=== PATIENT | female | born 1990 | race Caucasian/White ===

== ENCOUNTER 2021-04-10 16:46 | Emergency (ER) | payer OTHER ==
[~2021-04-10 16:46] MED LIST: AZITHROMYCIN250 MG PO; MOTRIN600 MG PO
[2021-04-10] MEDS ORDERED: AMOXICILLIN875 MG PO (17:56)
[2021-04-10] MEDS ORDERED: VENTOLIN HFA IN18 GM INH (17:56)
== END 2021-04-10 18:05 | disposition home or self-care (01) ==
LOC: FER 16:46
DX: H92.02 Otalgia, left ear (principal); R06.2 Wheezing; F17.200 Nicotine dependence, unspecified, uncomplicated; Z76.0 Encounter for issue of repeat prescription; Z88.0 Allergy status to penicillin
CPT/HCPCS: 99282

== ENCOUNTER 2021-08-04 02:17 | Day surgery (SDCO) | payer OTHER ==
[~2021-08-04] VITALS: Ht 160 cm; Wt 56.1 kg
[~2021-08-04 02:17] MED LIST changes: +AMOXICILLIN875 MG PO; +VENTOLIN HFA IN18 GM INH
[2021-08-04 03:08] LABS: BASOPHIL 0.6 % (0-2); EOSINOPHIL 1.1 % (0-5); HCT 42.3 % (37.0-47.0); HGB 12.9 g/dl (12.5-16.0); LYMPHOCYTE 25.7 % (15-48); MCH 26.6 pg (25.0-31.0); MCHC 30.5 g/dL (32.0-36.0); MCV 87.2 fL (78.0-100.0); NEUTROPHIL 64.4 % (41-80); NRBC 0; PLT 353 K/uL (150-400); RBC 4.85 M/uL (4.20-5.40); RDW 13.8 % (11.5-14.0); WBC 13.6 K/uL (4.0-10.5)
[2021-08-04 03:09] LABS: BILIRUBIN NEGATIVE (NEGATIVE); BLOOD 1+ Ery/uL (NEGATIVE); CLARITY CLEAR (CLEAR); COLOR YELLOW (YELLOW); GLUCOSE (U) NORMAL (NORMAL); LEUKOCYTES NEGATIVE Leu/uL (NEGATIVE); NITRITE NEGATIVE (NEGATIVE); PROTEIN TRACE (LOW) mg/dL (NEGATIVE); SPECIFIC GRAVITY >=1.030 (1.001-1.030); UROBILINOGEN 0.2 mg/dL (0.2-1.0)
[2021-08-04 03:18] LABS: BACTERIA 1+; MUCOUS MODERATE; SQUAMOUS EPITHELIAL CELLS 20-50; URINARY WBC RARE
[2021-08-04 03:19] LABS: AMPHETAMINES POSITIVE (NEGATIVE); BARBITURATES NEGATIVE (NEGATIVE); ECSTASY (MDMA) POSITIVE (NEGATIVE); MARIJUANA (THC) POSITIVE (NEGATIVE); METHADONE NEGATIVE (NEGATIVE); OPIATES POSITIVE (NEGATIVE); OXYCODONE NEGATIVE (NEGATIVE)
[2021-08-04 03:24] LABS: HCG (URINE) SCREEN NEGATIVE (NEGATIVE)
[2021-08-04 03:43] LABS: LACTIC ACID 2.8 mmol/L (0.4-1.9)
[2021-08-04 03:54] LABS: CORONAVIRUS 2019 SARS-COV-2 NEGATIVE (NEGATIVE); INFLUENZA A NAA NEGATIVE (NEGATIVE)
[2021-08-04 04:12] LABS: ACETAMINOPHEN (TYLENOL) < 2.0 ug/mL (10.0-30.0); ALBUMIN 3.8 g/dL (3.4-5.0); ALKALINE PHOSHATASE 102 U/L (46-116); ALT 21 U/L (14-59); AST 12 U/L (15-37); BILIRUBIN - TOTAL 0.2 mg/dL (0.2-1.0); BUN 14 mg/dL (7-18); BUN/CREAT RATIO (CALC) 19.2 RATIO; CHLORIDE 104 mmol/L (98-107); CO2 (BICARBONATE) 29 mmol/L (21-32); CPK 195 U/L (26-192); CREATININE 0.73 mg/dL (0.51-0.95); GLOBULIN (CALCULATION) 3.9 g/dL; GLUCOSE 109 mg/dL (74-106); POTASSIUM 4.3 mmol/L (3.5-5.1); TOTAL PROTEIN 7.7 g/dL (6.4-8.2)
--- NOTE | 2021-08-04 14:00 | NUR ---
1230 NOTIFIED MD CACERES OF PT BP 64/27 HE ORDERED A NS BOLUS THEN CONTINUE AT 100ML/HR 1402 BP 90/38(55) WILL CONTINUE TO MONITOR
[2021-08-05 04:14] LABS: BASOPHIL 0.5 % (0-2); EOSINOPHIL 2.4 % (0-5); HGB 9.7 g/dl (12.5-16.0); LYMPHOCYTE 43.3 % (15-48); MCH 27.2 pg (25.0-31.0); MCHC 31.3 g/dL (32.0-36.0); MCV 86.8 fL (78.0-100.0); MONOCYTE 7.8 % (0-12); MPV 9.9 fL (6.0-9.5); NEUTROPHIL 45.8 % (41-80); NRBC 0; PLT 178 K/uL (150-400); RBC 3.57 M/uL (4.20-5.40); RDW 14.1 % (11.5-14.0); WBC 5.5 K/uL (4.0-10.5)
[2021-08-05 04:32] LABS: BUN/CREAT RATIO (CALC) 23.4 RATIO; CREATININE 0.47 mg/dL (0.51-0.95); POTASSIUM 3.5 mmol/L (3.5-5.1)
[2021-08-05] MEDS ORDERED: ZITHROMAX500 MG PO (08:25)
[2021-08-05] MEDS ORDERED: FEOSOL325 MG PO (08:25)
--- NOTE | 2021-08-05 11:39 | NUR ---
PT STABLE AT TIME OF DISCAHRGE, NO SIGNS OF WITHDRAWL,IV REMOVED. FATHER PICKED HERE UP
== END 2021-08-05 11:30 | disposition home or self-care (01) ==
LOC: FER 02:17 → FICU 07:57
PROVIDERS: Emergency Medicine Emergency Medical Services; ADMIT Internal Medicine
DX: T43.621A Poisoning by amphetamines, accidental (unintentional), initial encounter (principal); R45.1 Restlessness and agitation; R41.0 Disorientation, unspecified; F11.10 Opioid abuse, uncomplicated; J18.9 Pneumonia, unspecified organism; R74.8 Abnormal levels of other serum enzymes; B19.20 Unspecified viral hepatitis C without hepatic coma; M47.817 Spondylosis without myelopathy or radiculopathy, lumbosacral region; F17.210 Nicotine dependence, cigarettes, uncomplicated; Z88.0 Allergy status to penicillin; Z20.822 Contact with and (suspected) exposure to COVID-19
CPT/HCPCS: 36415; 36600; 70450; 71250; 72131; 80048; 80053; 80305; 81001; 82550; 82803; 83605; 84145; 84484; 84703; 85025; 85379; 87040; 87088; 93005; G0378; G0480; J0456; J0692; J2060; J2310; J2405; J2800; J7030; J7050; U0002